=== PATIENT | female | born 1985 | race Caucasian/White ===

== ENCOUNTER 2024-02-05 22:02 | Emergency (ER) | payer MEDICAID, SELFPAY ==
[2024-02-05 22:17] VITALS: BP 170/125; PULSE 114; RESP 18; TEMP 37.4; O2SAT 98; BMI 26.6
--- NOTE | 2024-02-05 23:05 | ED_ITS ---
HPI - General Adult General Chief complaint: Hypertension Stated complaint: high blood pressure Time Seen by Provider: 02/05/24 22:51 History of Present Illness HPI narrative: High BP 182/112 , 111 HR at home- just racing today Took losartan 25mg, amlodipine 7. 5mg at 2030 tonight Denies N/V, vision problems Lots of stress in life- feels very anxious 38-year-old woman presenting to the emergency department with concern of high blood pressure. Noted her heart to be racing as well. Not complaining of chest pain. Does endorse feeling rather anxious due to would heal stressors in her life currently. Has not been taking medications regularly. Took losartan tonight and today took amlodipine for the 1st time in a very long time. Is not noting significant headache. No vision problems. No nausea. Longstanding history of hypertension. Generally not taking all of her medications. Describes that her mind is calm but body feels really tense Related Data Home Medications ?Medication ?Instructions ?Recorded ?Confirmed losartan 25 mg tablet 25 mg PO QAM 02/05/24 02/12/24 progesterone micronized 10 mg PO DAILY 02/05/24 02/12/24 amlodipine 5 mg tablet 10 mg PO DAILY 02/12/24 02/12/24 hydroxyzine HCl 25 mg tablet mg PO 02/12/24 02/12/24 oxycodone 10 mg tablet 10 mg PO PRN 02/12/24 02/12/24 piroxicam 10 mg capsule 10 mg PO DAILY 02/12/24 02/12/24 Allergies Allergy/AdvReac Type Severity Reaction Status Date / Time No Known Drug Allergies Allergy Verified 02/12/24 10:55 Review of Systems Status of ROS: Reports: 6 or more systems reviewed and unremarkable except as noted in History and below [facility] Medical History History of alcohol abuse ?F10.11 - Alcohol abuse, in remission (ICD-10) History of abnormal cervical Pap smear ?Z87.42 - Personal history of other diseases of the female genital tract (ICD-10) Surgical History History of third molar tooth extraction ?K08.409 - Partial loss of teeth, unspecified cause, unspecified class (ICD- 10) History of laparoscopy (2015) ?Z98.890 - Other specified postprocedural states (ICD-10) History of colposcopy ?Z98.890 - Other specified postprocedural states (ICD-10) Family History Father Heart disease Myocardial infarction, Onset Age: 46 Rectal cancer Maternal Grandmother Endometriosis Social History Smoking Status: Never smoker How often do you have a drink containing alcohol: never AUDIT-C Alcohol total score: 0 Non-prescribed substance use: denies use service: No Exam Narrative: Exam Narrative: Pleasant. Does appear mildly anxious. Skin is warm and dry. She is well- perfused peripherally. No extremity edema. Lungs are clear. Heart is tachycardic in a regular rhythm. Cranial nerves 2 through 12 intact. Const: Vital Signs, click to edit/add: Vital Signs - 24 hr 02/05/24 22:17 02/05/24 23:30 02/06/24 00:00 Temperature 99.4 F 99.4 F Pulse Rate [Pulse Oximeter] 114 H 100 91 Respiratory Rate 18 18 18 Blood Pressure [Ri ght Upper Arm] 170/125 H 175/121 H 154/84 H Pulse Oximetry 98 98 98 Oxygen Delivery Me thod Room Air Room Air Room Air 02/06/24 00:15 Temperature 99.4 F Pulse Rate [Pulse Oximeter] 91 Respiratory Rate 18 Blood Pressure [Ri ght Upper Arm] 154/84 H Pulse Oximetry Oxygen Delivery Me thod Documenting provider has reviewed patient's vital signs: yes Course Vital Signs Vital signs: Initial Vital Signs Temperature 99.4 F 02/05/24 22:17 Temperature Source Temporal Artery Scan 02/05/24 22:17 Pulse Rate 114 H 02/05/24 22:17 Respiratory Rate 18 02/05/24 22:17 Blood Pressure 170/125 H 02/05/24 22:17 Blood Pressure Mean 140 H 02/05/24 22:17 Blood Pressure Position Sitting 02/05/24 22:17 Pulse Oximetry 98 02/05/24 22:17 Oxygen Delivery Method Room Air 02/05/24 22:17 Vital Signs Temperature 99.4 F 02/05/24 22:17 Pulse Rate 114 H 02/05/24 22:17 Respiratory Rate 18 02/05/24 22:17 Blood Pressure 170/125 H 02/05/24 22:17 Pulse Oximetry 98 02/05/24 22:17 Oxygen Delivery Method Room Air 02/05/24 22:17 Temperature 99.4 F 02/06/24 00:15 Pulse Rate 91 02/06/24 00:15 Respiratory Rate 18 02/06/24 00:15 Blood Pressure 154/84 H 02/06/24 00:15 Pulse Oximetry 98 02/06/24 00:00 Oxygen Delivery Method Room Air 02/06/24 00:00 Medications Administered Medications: Discontinued Medications Generic Name Dose Route Start Last Admin Trade Name Mattie PRN Reason Stop Dose Admin Lorazepam 1 mg 02/05/24 23:15 02/05/24 23:23 Lorazepam 1 Mg Tablet PO 02/05/24 23:16 1 mg ONCE ONE Administration Medical Decision Making MDM Narrative Medical decision making narrative: Does appear to be struggling with some degree of anxiety. This might be driving this elevated blood pressure. Does though have formal diagnosis of hypertension is not been taking medication. Really seems to be a constellation of symptoms. Is not demonstrating hypertensive emergency. Possibly urgency. Therefore I think lab evaluation is unnecessary. Will treat symptoms initially. EKG consistent with baseline irritability. Without ischemic changes. See below. Accepts offer of 1 mg lorazepam. Blood pressure mildly improved after period of observation. Elevated pulse but no longer tachycardic. See patient discharge plan for further discussion Medical Records Medical records reviewed: Yes I reviewed the patient's medical records ECG Data Attestation: I personally reviewed and interpreted this ECG as follows: (Sinus tachycardia at 108. I do not appreciate any ischemic changes. Baseline irrita bility.) Discharge Plan Discharge Clinical Impression: Hypertension Patient Disposition: Home w/ Parent or Adult Condition: Stable Additional Instructions: Hopefully this lorazepam helps. You should shortly be seeing some affect of this. When you get home, I think you can take another dose of your amlodipine. I would take 5 mg again tomorrow morning. The following day if your blood pressure is generally 140 systolic or more, I would increase your daily amlodipine dose to 10 mg daily. Continue to take your losartan. Can check blood pressures daily or maybe every other day, probably sometime mid day, after a period of rest. Stay well-hydrated. Be seen/return for bad headache, visual changes, hematuria, persistent chest pain or shortness of breath. Prescriptions: No Action oxycodone 10 mg tablet 10 mg PO PRN hydroxyzine HCl 25 mg tablet PO piroxicam 10 mg capsule 10 mg PO DAILY losartan 25 mg tablet 25 mg PO QAM progesterone micronized 10 mg PO DAILY amlodipine 5 mg tablet 10 mg PO DAILY Stand Alone Forms: [employer] Info Instructions
[2024-02-05] MEDS: LORazepam 1 MG TABLET PO (23:23)
[2024-02-05 23:30] VITALS: BP 175/121; PULSE 100; RESP 18; O2SAT 98
[2024-02-06] VITALS: BP 154/84; PULSE 91; RESP 18; TEMP 37.4; O2SAT 98
[2024-02-06 00:15] VITALS: BP 154/84; PULSE 91; RESP 18; TEMP 37.4
== END 2024-02-06 00:15 | disposition home or self-care (01) ==
PROVIDERS: Emergency Provider Family Medicine
DX: I10 Essential (primary) hypertension (principal)
CPT/HCPCS: 93005; 99284; A9270

== ENCOUNTER 2024-04-14 13:50 | Outpatient (CLI) | payer MEDICAID, SELFPAY | END 2024-04-14 13:51 | disposition home or self-care (01) | PROVIDERS: PCP Physician Assistant Medical; Visit Provider Physician Assistant Medical | DX: I10 Essential (primary) hypertension (principal); F32.A Depression, unspecified; F41.9 Anxiety disorder, unspecified; N94.6 Dysmenorrhea, unspecified | CPT/HCPCS: 80053; 80061; 84443 ==

== ENCOUNTER 2024-06-16 12:31 | Day surgery (SDC) | payer MEDICAID, SELFPAY ==
[2024-06-16] VITALS (10 sets, daily range): BP systolic 106–146; BP diastolic 78–95; PULSE 49–77; RESP 12–16; TEMP 36.4–37.4; O2SAT 97–100; BMI 27.6
[2024-06-16] MEDS: SODIUM CHLORIDE 0.9 % (FLUSH) 10 ML SYRINGE IVF (13:13)
[2024-06-16] MEDS: 0.9 % SODIUM CHLORIDE 500 ML 500 ML 100 ML IV (13:15)
[2024-06-16 13:28] LABS: Hemoglobin* 14.4 gm/dL (12.0-16.0)
[2024-06-16 13:47] LABS: HCG Qualitative Serum* Negative (Negative)
--- NOTE | 2024-06-16 15:27 | W.ANESCHARGE ---
Anesthesia Charges Start Date/Time Anesthesia Start Date: 06/16/24 Anesthesia Start Time: 14:37 Stop Date/Time Anesthesia Stop Date: 06/16/24 Anesthesia Stop Time: 16:08
[2024-06-16] MEDS: BUPIVACAINE 0.5% 30 ML INJECTION (15:35)
--- NOTE | 2024-06-16 15:57 | W.PM.H&PU ---
History & Physical Update History & Physical Update H&P Reviewed and patient assessed: No changes noted
--- NOTE | 2024-06-16 15:59 | P.PCN_ITS ---
Procedure Note Time Seen by Provider: 15:59 Date Seen: 06/16/24 Date of procedure: 06/16/24 Will [facility] bill your pro fee for this procedure?: Yes Procedure: Preoperative diagnosis: 38-year-old with chronic pelvic pain, severe dysmenorrhea, hypermenorrhea, vaginal pain syndrome and interstitial cystitis. Postoperative diagnosis: Same. Endometriosis, left ovarian endometrioma. 3 cm, posterior, serosal fibroid. Procedure: Laparoscopic left ovarian cystectomy, peritoneal biopsy x2 Anesthesia: General endotracheal, local Surgeon: Lacey Chong MD Director Medical: Bang Leiva MD EBL: 10 mL Urine output: 200 mL clear urine IV Fluid: 400 ml crystalloid Specimen: 1. Left ovarian cyst wall. 2. Posterior cul-de-sac peritoneal biopsy. 3. Bladder reflection peritoneal biopsy. Findings: On exam under anesthesia: The uterus was anteverted, less than 10week size, mobile, without masses or nodularity palpable. Adnexa were without mass or fullness bilaterally. The uterus sounded to 8 cm. On laparoscopy: The right ovary, left fallopian tube and liver edge all normal. Left ovary with a 1.5 cm endometrioma, left posterior cul-de-sac suspected endometriosis implant, bladder reflection, left suspected endometriosis implant, clubbed fimbria on the right. Posterior, right of midline, 3 cm serosal fibroid. Appendix surgically absent. Procedure: Patient was taken to the operating room where general anesthetic was found to be adequate. She was placed in the dorsal lithotomy position and an exam under anesthesia was performed with findings stated above. She was then prepped and draped in a normal sterile manner. A Rocha catheter was then placed. A bivalve speculum was then placed in the vaginal canal to visualize the cervix. The anterior lip of the cervix was grasped with an a long Allis clamp. The cervix was dilated to Hegar 6. Uterus was sounded to 8 cm. A [employer] uterine manipulator was then placed. Attention was then turned to performing the laparoscopic portion of the procedure. All incisions were injected with 0.5% Marcaine prior to incision. A vertical 5 mm infraumbilical, incision, was made and a 5 mm trocar placed under direct visualization with the laparoscope. The abdomen was then insufflated with carbon dioxide gas to a pressure of 15 mm of mercury. To bilateral lower quadrant trocars were then placed under direct visualization. Both were placed approximately 3-4 finger breaths medial to the ischial crests. All trocars were 5 mm. A diagnostic laparoscopy was then performed with findings stated above. The left fallopian tube was grasped with a soft jawed grasper and the left ovary mobilized. When the left ovary was mobilized the endometrioma ruptured and a chocolate appearing fluid was noted. The cyst wall was grasped with a [place] clamp and the overlying ovarian tissue grasped with a 2nd Maryland clamp and the cyst wall removed. The base of the cyst was then cauterized with the [facility] pencil using the spatula attachment. The base of the cyst was then irrigated and excellent hemostasis noted. The base of the serosal fibroid was extremely broad so a laparoscopic myomectomy was not attempted. The posterior fossa of the left ovary was normal. There was a superficial implant of suspected endometriosis in the left side of the cul-de-sac that was removed and sent pathology. The right fallopian tube was grasped and the right ovary mobilized. No evidence of endometriosis on the right ovary, in the posterior ovarian fossa or the right side of the posterior cul-de-sac. The fimbria of the right fallopian tube were noted to be clubbed. The implant and the bladder refer collection on the left was grasped with a [place] clamp and a peritoneal biopsy rim removed this implant using laparoscopic scissors. Hemostasis obtained with the [facility] pencil using the spatula attachment. The pelvis was irrigated and hemostasis identified. All trocars were removed under direct visualization. The CO2 gas was allowed to escape the infraumbilical port prior to its removal. All incisions were reapproximated using 4-0 Monocryl in a running subcuticular manner. Exofin adhesive gel was then applied. The uterine manipulator and Rocha catheter were removed. Sponge, lap and instrument counts were correct x2 at the end of the procedure. The patient was awakened from anesthesia and taken does recovery area in stable condition. Anesthesia: GETA and local Surgeon: Lacey Chong Director Medical: Lexi Leiva Estimated blood loss (mL): 10 IV fluids (mL): 400 Urine output (mL): 200 Pathology: specimen obtained, sent to pathology Condition: stable Disposition: PACU
--- NOTE | 2024-06-16 16:12 | W.ANESCHARGE ---
Anesthesia Charges Start Date/Time Anesthesia Start Date: 06/16/24 Anesthesia Start Time: 14:37 Stop Date/Time Anesthesia Stop Date: 06/16/24 Anesthesia Stop Time: 16:08
[2024-06-16] MEDS: OXYCODONE 5 MG TABLET PO (16:35)
[2024-06-16] MEDS: hydrOXYzine pamoate 25 MG CAPSULE PO (16:50)
[2024-06-16] MEDS: ACETAMINOPHEN 500 MG TABLET 1000 MG PO (16:50)
== END 2024-06-16 17:26 | disposition home or self-care (01) ==
PROVIDERS: PCP Physician Assistant Medical; Visit Provider Obstetrics & Gynecology
PROC: (CPT 49320; principal; 2024-06-16 13:45)
DX: N80.122 Deep endometriosis of left ovary (principal); N80.329 Endometriosis of the posterior cul-de-sac, unspecified depth; D25.2 Subserosal leiomyoma of uterus; N92.0 Excessive and frequent menstruation with regular cycle; N94.6 Dysmenorrhea, unspecified; R10.2 Pelvic and perineal pain; G89.29 Other chronic pain
CPT/HCPCS: 58662; 49321; 00840; 36415; 81025; 84703; 85018; 86850; 86900; 86901; 88305; A9270; J0330; J0665; J1630; J1885; J2250; J2405; J2704; J2710; J3010; J7030

== ENCOUNTER 2025-04-29 07:53 | Outpatient (CLI) | payer MEDICAID, SELFPAY | END 2025-04-29 07:54 | disposition home or self-care (01) | LOC: NFLDREF 05-01 11:51 | PROVIDERS: PCP Physician Assistant Medical; Referring Provider Physician Assistant Medical; Visit Provider Physician Assistant Medical | DX: I10 Essential (primary) hypertension (principal); Z00.00 Encounter for general adult medical examination without abnormal findings | CPT/HCPCS: 80053; 80061; 84443 ==